=== PATIENT | male | born 1980 | race Caucasian/White ===

== ENCOUNTER 2017-01-31 14:19 | Emergency (ER) | payer MEDICAID, OTHER, SELFPAY ==
[~2017-01-31] VITALS: Ht 188 cm; Wt 116.7 kg
[2017-01-31] MEDS ORDERED: ADACEL/BOOSTRIX VACCINE (DIPHTH/PERTUSS/ACELL/TETANUS)0.5ML SYR (90715) IM ONE (14:45)
--- NOTE | 2017-01-31 15:09 | REP ---
Clinical: Trauma. Dislocation. Technique: AP, lateral, oblique views of the right first digit. Findings: Lateral view best demonstrates posterior dislocation at the interphalangeal joint. Small fracture at the base of the distal phalanx cannot be excluded. Impression: Posterior dislocation at the first interphalangeal joint. Signed by Avel Shah MD 01/31/2017 03:01 P
[2017-01-31] MEDS ORDERED: CEPHALEXIN 500 MG CAP PO ONE (15:15)
[2017-01-31 15:46] VITALS: BP 141/90
[2017-01-31] MEDS ORDERED: NORCOTAB PO (17:31)
[2017-01-31] MEDS ORDERED: KEFL500C17 PO (17:31)
== END 2017-01-31 15:50 | disposition home or self-care (01) ==
LOC: M ED 15:38
DX: S63.288A Dislocation of proximal interphalangeal joint of other finger, initial encounter (principal); S61.011A Laceration without foreign body of right thumb without damage to nail, initial encounter; W18.09XA Striking against other object with subsequent fall, initial encounter; Y92.830 Public park as the place of occurrence of the external cause; Y93.64 Activity, baseball; Y99.8 Other external cause status; F17.200 Nicotine dependence, unspecified, uncomplicated

== ENCOUNTER 2018-02-02 10:31 | Emergency (ER) | payer OTHER, MEDICAID | END 2018-02-02 11:56 | disposition home or self-care (01) | LOC: M ED 10:31 | DX: R03.0 Elevated blood-pressure reading, without diagnosis of hypertension (principal); M54.5 Low back pain; F17.210 Nicotine dependence, cigarettes, uncomplicated | CPT/HCPCS: 99283 ==

== ENCOUNTER 2019-12-27 19:45 | Emergency (ER) | payer OTHER ==
[~2019-12-27] VITALS: Ht 188 cm; Wt 114.4 kg
[~2019-12-27 19:45] MED LIST: ENDO7.5T11 PO; HYDR-3715 PO; IBUP80TA PO; KEFL500C17 PO
--- NOTE | 2019-12-27 21:08 | REPVR ---
PROCEDURE INFORMATION: Exam: US Left Non-Vascular Joint or Other Extremity Structure, Limited Upper Extremity Exam date and time: 12/27/2019 9:01 PM Age: 39 years old Clinical indication: Pain; Shoulder; Left; Additional info: Mass to L scapula area TECHNIQUE: Imaging protocol: Left US Non-Vascular Joint or Other Extremity Structure. Limited exam of the upper extremity. COMPARISON: [facility] Fingers 01/31/2017 2:49 PM FINDINGS: Soft tissues: Fusiform shaped hypoechoic mass in the left scapular region in the deep subcutaneous soft tissues and superficial to the muscles measures 5.2 x 1 x 6.1 cm. Finding likely represents a lipoma. Correlation with CT scan could be obtained if clinically desired. IMPRESSION: Fusiform shaped hypoechoic mass in the left scapular region in the deep subcutaneous soft tissues and superficial to the muscles measures 5.2 x 1 x 6.1 cm. Finding likely represents a lipoma. Correlation with CT scan could be obtained if clinically desired. Electronically signed by: Darron Quintana On 12/27/2019 21:08:11 PM
[2019-12-27 21:31] VITALS: BP 141/99
== END 2019-12-27 21:32 | disposition home or self-care (01) ==
LOC: M ED 19:45
DX: D17.1 Benign lipomatous neoplasm of skin and subcutaneous tissue of trunk (principal); F12.90 Cannabis use, unspecified, uncomplicated; Z87.19 Personal history of other diseases of the digestive system